=== PATIENT | female | born 1965 | race Caucasian/White ===

== ENCOUNTER 2017-07-01 16:41 | Emergency (ER) | payer BC, OTHER ==
[~2017-07-01] VITALS: Ht 170.2 cm; Wt 86.2 kg
[~2017-07-01 16:41] MED LIST: DIOVAN320 MG PO; FLEXERIL PO; ROBAXIN 750 MG750 M1 PO; TRAMADOL 50 MG50 MG PO; TRAZODONE 150150 M1 PO; VENLAFAXIN75 MG/1 T2 PO
[2017-07-01] MEDS ORDERED: TRAMADOL 50 MG50 MG PO (19:09)
[2017-07-01] MEDS ORDERED: KEFLEX500 MG PO (19:09)
[2017-07-01 20:10] VITALS: BP 120/84
== END 2017-07-01 20:10 | disposition home or self-care (01) ==
LOC: ER 16:41
DX: S01.312A Laceration without foreign body of left ear, initial encounter (principal); S80.212A Abrasion, left knee, initial encounter; S80.211A Abrasion, right knee, initial encounter; S09.90XA Unspecified injury of head, initial encounter; W01.0XXA Fall on same level from slipping, tripping and stumbling without subsequent striking against object, initial encounter; Y93.89 Activity, other specified; Y92.59 Other trade areas as the place of occurrence of the external cause; Y99.8 Other external cause status

== ENCOUNTER 2017-07-11 13:42 | Emergency (ER) | payer BC, OTHER ==
[~2017-07-11] VITALS: Ht 172.7 cm; Wt 86.2 kg
[~2017-07-11 13:42] MED LIST changes: +KEFLEX500 MG PO
[2017-07-11] MEDS ORDERED: XANAX1 MG PO (14:04)
[2017-07-11] MEDS ORDERED: BENTYL 10 MG CA10 M1 PO (14:04)
[2017-07-11] MEDS ORDERED: NORCO 5-325 TA1 EACH PO (15:11)
[2017-07-11] MEDS ORDERED: IBUPROFEN 600600 M1 PO (15:11)
[2017-07-11 15:31] VITALS: BP 102/58
== END 2017-07-11 15:34 | disposition home or self-care (01) ==
LOC: ER 13:42
DX: R07.81 Pleurodynia (principal); S01.312D Laceration without foreign body of left ear, subsequent encounter; Z88.8 Allergy status to other drugs, medicaments and biological substances; Z91.040 Latex allergy status; F17.210 Nicotine dependence, cigarettes, uncomplicated; W19.XXXD Unspecified fall, subsequent encounter

== ENCOUNTER 2019-06-03 14:36 | Emergency (ER) | payer OTHER ==
[~2019-06-03] VITALS: Ht 172.7 cm; Wt 81.7 kg
[~2019-06-03 14:36] MED LIST changes: +BENTYL 10 MG CA10 M1 PO; +IBUPROFEN 600600 M1 PO; +MOBIC7.5 MG PO; +NORCO 5-325 TA1 EACH PO; +NORFLEX100 MG PO; +XANAX1 MG PO
[2019-06-03 14:48] VITALS: BP 112/84
[2019-06-03] MEDS ORDERED: DIOVAN160 MG PO (14:56)
[2019-06-03] MEDS ORDERED: MEDROLDOSEPACK PO (15:12)
[2019-06-03] MEDS ORDERED: NORCO 5-325 TA1 EAC1 PO (15:12)
== END 2019-06-03 16:20 | disposition home or self-care (01) ==
LOC: ER 14:36
DX: M54.41 Lumbago with sciatica, right side (principal); F17.210 Nicotine dependence, cigarettes, uncomplicated; Z91.040 Latex allergy status; Z88.1 Allergy status to other antibiotic agents; Z90.710 Acquired absence of both cervix and uterus; Z90.49 Acquired absence of other specified parts of digestive tract

== ENCOUNTER 2019-06-29 14:32 | Emergency (ER) | payer OTHER ==
[~2019-06-29] VITALS: Ht 172.7 cm; Wt 86.2 kg
[~2019-06-29 14:32] MED LIST changes: +DIOVAN160 MG PO; +MEDROLDOSEPACK PO; +NORCO 5-325 TA1 EAC1 PO
[2019-06-29 14:34] VITALS: BP 129/84
[2019-06-29] MEDS ORDERED: IBUPROFEN 600600 M1 PO (16:11)
[2019-06-29] MEDS ORDERED: TRAMADOL 50 MG50 MG PO (16:11)
== END 2019-06-29 16:28 | disposition home or self-care (01) ==
LOC: ER 14:32
DX: S80.01XA Contusion of right knee, initial encounter (principal); S50.01XA Contusion of right elbow, initial encounter; I10 Essential (primary) hypertension; F17.210 Nicotine dependence, cigarettes, uncomplicated; Z90.49 Acquired absence of other specified parts of digestive tract; Z98.890 Other specified postprocedural states; Z91.040 Latex allergy status; Z88.1 Allergy status to other antibiotic agents; W01.0XXA Fall on same level from slipping, tripping and stumbling without subsequent striking against object, initial encounter; Y92.89 Other specified places as the place of occurrence of the external cause; Y93.89 Activity, other specified; Y99.8 Other external cause status

== ENCOUNTER 2019-09-17 14:01 | Emergency (ER) | payer OTHER ==
[~2019-09-17] VITALS: Ht 170.2 cm; Wt 90.7 kg
[2019-09-17] MEDS ORDERED: ULTRAM 50MG TAB50 MG PO (15:13)
[2019-09-17 15:39] VITALS: BP 125/83
== END 2019-09-17 16:16 | disposition home or self-care (01) ==
LOC: ER 14:01
DX: S43.492A Other sprain of left shoulder joint, initial encounter (principal); S70.02XA Contusion of left hip, initial encounter; F17.210 Nicotine dependence, cigarettes, uncomplicated; Z90.710 Acquired absence of both cervix and uterus; Z90.49 Acquired absence of other specified parts of digestive tract; Z91.040 Latex allergy status; Z88.1 Allergy status to other antibiotic agents; W10.8XXA Fall (on) (from) other stairs and steps, initial encounter; Y93.89 Activity, other specified; Y92.098 Other place in other non-institutional residence as the place of occurrence of the external cause; Y99.8 Other external cause status